=== PATIENT | female | born 1990 | race Hispanic/Latino ===

== ENCOUNTER 2020-12-04 06:35 | Inpatient (IN) | payer BC, OTHER ==
[~2020-12-04] VITALS: Ht 162.6 cm; Wt 99.8 kg
[2020-12-04 06:49] VITALS: BP 152/97
[2020-12-04 07:03] LABS: BASOPHILS % (AUTO) 0.5 % (0.0-5.0); EOSINOPHILS % (AUTO) 0.2 % (0.0-8.0); HEMATOCRIT 41.6 % (36-48); LYMPHOCYTES % (AUTO) 23.9 % (21.0-51.0); MEAN CORPUSCULAR HEMOGLOBIN 28.2 pg (27.0-33.0); MEAN CORPUSCULAR HGB CONC 32.9 g/dL (32.0-36.0); MEAN CORPUSCULAR VOLUME 85.6 fL (79-99); MONOCYTES % (AUTO) 5.2 % (3.0-13.0); NEUTROPHILS % (AUTO) 69.7 % (40.0-77.0); PLATELET COUNT (AUTO) 266 K/uL (130-400); RED BLOOD CELL COUNT(AUTO) 4.86 MIL/uL (4.00-5.50); RED CELL DISTRIBUTION WIDTH 12.6 % (11.0-15.5); WHITE BLOOD COUNT (AUTO) 10.3 K/uL (4.8-10.8)
[2020-12-04 07:39] LABS: ALANINE AMINOTRANSFERASE 41 U/L (12-78); ALBUMIN 3.8 g/dL (3.5-5.0); ASPARTATE AMINOTRANSFERASE 19 U/L (10-37); BILIRUBIN,TOTAL 0.4 mg/dL (0.2-1.0); CARBON DIOXIDE 26 mmol/L (21-32); CHLORIDE 99 mmol/L (101-111); CREATINE KINASE, TOTAL 44 U/L (21-232); CREATININE 0.9 mg/dL (0.5-1.5); GLOMERULAR FILTR. RATE CALC 78 mL/min (>60); GLUCOSE,RANDOM 166 mg/dL (70-105); MYOGLOBIN 23 ng/mL (10-92); POTASSIUM 3.7 mmol/L (3.5-5.1); SODIUM SERUM 135 mmol/L (136-145); TOTAL PROTEIN, SERUM 8.6 g/dL (6.0-8.3); TROPONIN I < 0.04 ng/mL (0.00-0.06); UREA NITROGEN, BLOOD 12 mg/dL (7-18)
[2020-12-04] MEDS ORDERED: LIDOCAINE HCL 2% VISCOUS 15 ML UDCUP ONE (07:58)
[2020-12-04] MEDS: LIDOCAINE HCL 2% VISCOUS 15 ML UDCUP PO SCH (08:00)
[2020-12-04] MEDS: MAG HYDROX/AL HYDROX/SIMETH ES 30 ML SUSP UDCUP PO SCH (08:09)
[2020-12-04] MEDS: ONDANSETRON HCL 4 MG/2 ML VIAL IVP SCH (08:09)
[2020-12-04] MEDS: FAMOTIDINE/PF 20 MG/2 ML VIAL IV SCH (08:09)
[2020-12-04] MEDS: FENTANYL CITRATE PF 50 MCG/1 ML 2ML VIAL IVP SCH ×2 (08:31→09:18)
[2020-12-04] MEDS ORDERED: KCL 20 MEQ ERTAB PO PRN (10:30)
[2020-12-04] MEDS ORDERED: POTASSIUM CHLORIDE 10% ELIXIR 20 MEQ/15 ML UDCUP PO PRN (10:30)
[2020-12-04] MEDS ORDERED: PIP/TAZ ZOSYN 3.375G 3.375 GM VIAL IVPB SCH (10:30)
[2020-12-04] MEDS ORDERED: POTASSIUM CHLORIDE 20MEQ/100ML 100 ML IV PRN ×2 (10:30)
[2020-12-04] MEDS ORDERED: ONDANSETRON HCL 4 MG/2 ML VIAL IVP PRN (10:30)
[2020-12-04] MEDS ORDERED: LIDOCAINE HCL-MPF 1% 2ML VIAL IV PRN ×2 (10:30)
[2020-12-04] MEDS ORDERED: MAGNESIUM 2GM PREMIX 50ML 50 ML IV PRN (10:30)
[2020-12-04] MEDS ORDERED: 0.9% SODIUM CHLORIDE 50 ML IV BAG IV SCH (10:30)
[2020-12-04] MEDS ORDERED: MORPHINE 2 MG SYG (2MG/1ML) IVP PRN (10:30)
[2020-12-04] MEDS ORDERED: SODIUM CHLORIDE 0.9% 100 ML IV ONE (10:54)
[2020-12-04] MEDS: LACTATED RINGERS 1000ML 1,000 ML IV SCH ×2 (11:05→21:14)
[2020-12-04] MEDS ORDERED: SODIUM CHLORIDE 0.9% 50 ML IV ONE (11:12)
[2020-12-04] MEDS: ZOSYN 3.375GM+NS 50ML 50 ML IV SCH ×2 (11:53→18:18)
[2020-12-04] MEDS ORDERED: HYDROMORPHONE 1MG AMP (1MG/ML) IVP PRN (12:15)
[2020-12-04] MEDS: KETOROLAC 15MG/ML VIAL (15MG/ML) IV PRN ×2 (12:49→18:18)
[2020-12-04 13:05] VITALS: BP 151/90
[2020-12-04 13:30] VITALS: BP 117/79
[2020-12-04 16:00] VITALS: BP 118/74
[2020-12-04 19:49] VITALS: BP 107/69
[2020-12-04] MEDS ORDERED: METF-444 PO (20:18)
[2020-12-04] MEDS: PANTOPRAZOLE 40 MG/VIAL IVP SCH (21:03)
[2020-12-04 23:36] VITALS: BP 91/54
[2020-12-05] MEDS: ZOSYN 3.375GM+NS 50ML 50 ML IV SCH ×3 (02:11→18:21)
[2020-12-05] MEDS: KETOROLAC 15MG/ML VIAL (15MG/ML) IV PRN ×3 (03:47→20:31)
[2020-12-05 04:07] VITALS: BP 109/73
[2020-12-05 04:44] LABS: HEMATOCRIT 36.9 % (36-48); MEAN CORPUSCULAR HEMOGLOBIN 29.2 pg (27.0-33.0); MEAN CORPUSCULAR HGB CONC 33.6 g/dL (32.0-36.0); MEAN CORPUSCULAR VOLUME 86.8 fL (79-99); RED BLOOD CELL COUNT(AUTO) 4.25 MIL/uL (4.00-5.50); RED CELL DISTRIBUTION WIDTH 12.9 % (11.0-15.5); WHITE BLOOD COUNT (AUTO) 8.6 K/uL (4.8-10.8)
[2020-12-05 04:49] LABS: CREATININE 0.9 mg/dL (0.5-1.5); POTASSIUM 3.6 mmol/L (3.5-5.1)
[2020-12-05] MEDS: LACTATED RINGERS 1000ML 1,000 ML IV SCH ×2 (06:27→18:21)
[2020-12-05 07:50] VITALS: BP 120/81
[2020-12-05] MEDS: MAG HYDROX/AL HYDROX/SIMETH ES 30 ML SUSP UDCUP PO SCH (08:00)
[2020-12-05] MEDS: FAMOTIDINE/PF 20 MG/2 ML VIAL IV SCH (08:00)
[2020-12-05] MEDS: LIDOCAINE HCL 2% VISCOUS 15 ML UDCUP PO SCH (08:00)
[2020-12-05] MEDS: ONDANSETRON HCL 4 MG/2 ML VIAL IVP SCH (08:00)
[2020-12-05] MEDS: PANTOPRAZOLE 40 MG/VIAL IVP SCH ×2 (09:00→21:29)
[2020-12-05 12:05] VITALS: BP 107/69
[2020-12-05 16:16] VITALS: BP 108/71
[2020-12-05 20:15] VITALS: BP 108/73
[2020-12-05 23:50] VITALS: BP 113/75
[2020-12-06] VITALS (24 sets, daily range): BP systolic 98–137; BP diastolic 57–89
[2020-12-06] MEDS: ZOSYN 3.375GM+NS 50ML 50 ML IV SCH ×2 (01:57→11:37)
[2020-12-06 05:20] LABS: HEMATOCRIT 37.4 % (36-48); MEAN CORPUSCULAR HEMOGLOBIN 28.9 pg (27.0-33.0); MEAN CORPUSCULAR HGB CONC 33.2 g/dL (32.0-36.0); MEAN CORPUSCULAR VOLUME 87.2 fL (79-99); RED BLOOD CELL COUNT(AUTO) 4.29 MIL/uL (4.00-5.50); RED CELL DISTRIBUTION WIDTH 12.9 % (11.0-15.5); WHITE BLOOD COUNT (AUTO) 8.8 K/uL (4.8-10.8)
[2020-12-06 05:32] LABS: CREATININE 0.8 mg/dL (0.5-1.5); POTASSIUM 3.6 mmol/L (3.5-5.1)
[2020-12-06] MEDS: LACTATED RINGERS 1000ML 1,000 ML IV SCH ×2 (06:12→17:44)
[2020-12-06] MEDS: LIDOCAINE HCL 2% VISCOUS 15 ML UDCUP PO SCH (08:00)
[2020-12-06] MEDS: FAMOTIDINE/PF 20 MG/2 ML VIAL IV SCH (08:00)
[2020-12-06] MEDS: ONDANSETRON HCL 4 MG/2 ML VIAL IVP SCH ×2 (08:00→18:05)
[2020-12-06] MEDS: MAG HYDROX/AL HYDROX/SIMETH ES 30 ML SUSP UDCUP PO SCH (08:00)
[2020-12-06] MEDS: FENTANYL CITRATE PF 50 MCG/1 ML 2ML VIAL IVP SCH (08:15)
[2020-12-06] MEDS: PANTOPRAZOLE 40 MG/VIAL IVP SCH (09:50)
[2020-12-06] MEDS: KETOROLAC 15MG/ML VIAL (15MG/ML) IV PRN ×2 (10:40→21:48)
[2020-12-06] MEDS ORDERED: FENTANYL CITRATE PF 50 MCG/1 ML 2ML VIAL ONE ×2 (14:59→17:16)
[2020-12-06] MEDS ORDERED: LIDOCAINE PF 100MG/5ML (2%) SYRINGE 5ML ONE (14:59)
[2020-12-06] MEDS ORDERED: ROCURONIUM 10MG/1ML SYR 10 MG/ML ML ONE (14:59)
[2020-12-06] MEDS ORDERED: ONDANSETRON HCL 4 MG/2 ML VIAL ONE (14:59)
[2020-12-06] MEDS ORDERED: PROPOFOL 10 MG/ML 20ML VIAL IV ONE ×2 (14:59→17:34)
[2020-12-06] MEDS ORDERED: MIDAZOLAM HCL 1 MG/ML 2ML VIAL ONE (14:59)
[2020-12-06] MEDS ORDERED: BUPIVACAINE/PF 0.5% 30ML VIAL ONE (15:13)
[2020-12-06] MEDS ORDERED: GLYCOPYRROLATE 1 MG/5 ML SYRINGE ONE (17:13)
[2020-12-06] MEDS ORDERED: NEOSTIGMINE 5MG/5ML SYR IV ONE (17:32)
[2020-12-06] MEDS ORDERED: MEPERIDINE-PF 25 MG/ML SYG ONE ×2 (17:59→18:20)
[2020-12-06] MEDS ORDERED: LACTATED RINGERS 1000ML 1,000 ML IV SCH (18:15)
[2020-12-06] MEDS ORDERED: MORPHINE 4 MG SYG (4MG/1ML) IM PRN (18:15)
[2020-12-07] MEDS ORDERED: ACETAMINOPHEN-CODEINE 300/30MG TAB PO PRN (03:45)
[2020-12-07 03:55] VITALS: BP 123/62
[2020-12-07 05:17] LABS: HEMATOCRIT 36.9 % (36-48); MEAN CORPUSCULAR HEMOGLOBIN 28.4 pg (27.0-33.0); MEAN CORPUSCULAR HGB CONC 33.6 g/dL (32.0-36.0); MEAN CORPUSCULAR VOLUME 84.6 fL (79-99); RED BLOOD CELL COUNT(AUTO) 4.36 MIL/uL (4.00-5.50); RED CELL DISTRIBUTION WIDTH 12.3 % (11.0-15.5); WHITE BLOOD COUNT (AUTO) 11.6 K/uL (4.8-10.8)
[2020-12-07 05:32] LABS: ALBUMIN 3.4 g/dL (3.5-5.0); BILIRUBIN,TOTAL 0.4 mg/dL (0.2-1.0); CREATININE 0.8 mg/dL (0.5-1.5); POTASSIUM 3.7 mmol/L (3.5-5.1); TOTAL PROTEIN, SERUM 7.9 g/dL (6.0-8.3)
[2020-12-07 07:22] VITALS: BP 118/76
[2020-12-07] MEDS ORDERED: SIMETHICONE 80 MG TAB.CHEW PO PRN (08:15)
[2020-12-07 11:17] VITALS: BP 155/71
[2020-12-07 11:32] VITALS: BP 112/73
== END 2020-12-07 15:35 | disposition home or self-care (01) | DRG 419 ==
LOC: EDH 06:43 → INTOOBSV 06:44 → OBSVTOIN 06:44 → EDHIP 06:44 → UNDOADMOB 06:44 → EDHIP 13:56 → WSH 13:56 → UNDODISIN 12-07 15:35
PROVIDERS: ADMIT Internal Medicine Critical Care Medicine; ATTEND Internal Medicine Critical Care Medicine
PROC: 0FT44ZZ Resection of Gallbladder, Percutaneous Endoscopic Approach (ICD-10-PCS; principal; 2020-12-06 17:06)
DX: K80.00 Calculus of gallbladder with acute cholecystitis without obstruction (principal); E66.9 Obesity, unspecified; Z68.37 Body mass index [BMI] 37.0-37.9, adult; J30.2 Other seasonal allergic rhinitis; E11.9 Type 2 diabetes mellitus without complications; K82.8 Other specified diseases of gallbladder; Z20.822 Contact with and (suspected) exposure to COVID-19; Z79.84 Long term (current) use of oral hypoglycemic drugs
CPT/HCPCS: 36415; 71045; 74181; 76705; 80048; 80053; 81025; 82550; 83690; 83735; 83874; 84132; 84484; 85025; 85027; 85378; 87635; 93005; C9113; G0378; J1885; J2001; J2175; J2250; J2405; J2543; J2704; J2710; J3010; J3480; J3490; J7030; J7120

== ENCOUNTER → 2025-05-12 | Outpatient (CLI) | payer BC, OTHER ==
[~2025-05-12] MED LIST: METF-444 PO
[2025-05-12 14:04] LABS: IMMATURE GRANULOCYTE ABSOLUTE 0.03 K/uL (0-1); NUCLEATED RED BLOOD CELLS 0.0 % (0.0-0.19); PLATELET COUNT (AUTO) 224 K/uL (130-400); RED BLOOD CELL COUNT(AUTO) 4.67 MIL/uL (4.00-5.50); RED CELL DISTRIBUTION WIDTH 12.3 % (11.0-15.5); WHITE BLOOD COUNT (AUTO) 9.1 K/uL (4.8-10.8)
[2025-05-12 14:05] LABS: APPEARANCE,URINE CLEAR (CLEAR); GLUCOSE, URINE (UA) NEGATIVE (NEGATIVE); LEUKOCYTE ESTERASE ,URINE NEGATIVE Leu/uL (NEGATIVE); NITRATE,URINE NEGATIVE (NEGATIVE); OCCULT BLOOD,URINE NEGATIVE (NEGATIVE)
[2025-05-12 14:06] LABS: ERYTHROCYTE SEDIMENTATION RATE 5 MM/HR (0-20)
[2025-05-12 14:08] LABS: ADD UA MICROSCOPIC NO
[2025-05-12 14:14] LABS: INR 0.98 (0.85-1.15)
[2025-05-12 14:25] LABS: % IRON SATURATION 17.1 % (22-44); IRON, SERUM 46.0 mcg/dL (50-170)
[2025-05-12 14:55] LABS: ASPARTATE AMINOTRANSFERASE 20 U/L (10-37); CREATININE 0.8 mg/dL (0.5-1.0); GLOMERULAR FILTR. RATE CALC 98 mL/min (>90); GLUCOSE,RANDOM 87 mg/dL (70-105); LDL DIRECT 111 mg/dL (0-99); SODIUM SERUM 138 mmol/L (136-145); TOTAL PROTEIN, SERUM 7.7 g/dL (6.0-8.3); UREA NITROGEN, BLOOD 12 mg/dL (7-18)
== END | disposition home or self-care (01) ==
LOC: LAB 13:29
PROVIDERS: ATTEND Internal Medicine
DX: E78.5 Hyperlipidemia, unspecified (principal); E11.69 Type 2 diabetes mellitus with other specified complication; Z00.00 Encounter for general adult medical examination without abnormal findings; R53.1 Weakness; Z79.01 Long term (current) use of anticoagulants
CPT/HCPCS: 36415; 80053; 80061; 81003; 82607; 82728; 82746; 83036; 83540; 83550; 84443; 85025; 85610; 85651; 85730; 86140; 87086